=== PATIENT | female | born 1995 | race Caucasian/White ===

== ENCOUNTER 2023-10-29 19:20 | Emergency (ER) | payer SELFPAY ==
[2023-10-29] MEDS ORDERED: SODIUM CHLORIDE 0.9% 500 ML INFUS.BAG IV ONE ×2 (20:01→20:02)
[2023-10-29] MEDS ORDERED: ACETAMINOPHEN 1000 MG/100 ML BAG IVPB ONE (20:01)
[2023-10-29] MEDS ORDERED: guaiFENesin 200 MG/10 ML 10 ML UNIT-DOSE CUPS PO ONE (20:02)
[2023-10-29 20:36] VITALS: BP 131/68; PULSE 102; RESP 22; BMI 26.2
[2023-10-29 20:48] LABS: BASO % 0.4 % (0-2.0); HEMATOCRIT 37.7 % (32.4-45.2); HEMOGLOBIN 12.8 GM/dL (10.7-15.3); LYMPH % 9.5 % (8-40); MEAN PLT VOLUME 9.5 fl (7.5-11.1); MONO % 12.1 % (3.8-10.2); PLATELET COUNT 217 10^3/uL (134-434); RBC 4.28 M/mm3 (3.60-5.2); RDW 13.2 % (11.6-15.6); WHITE BLOOD COUNT 9.1 K/mm3 (4.0-10.0)
[2023-10-29 21:07] LABS: POTASSIUM 3.8 mmol/L (3.5-5.1)
[2023-10-29 21:09] LABS: ALBUMIN 3.8 g/dl (3.4-5.0); BLOOD UREA NITROGEN 7.5 mg/dL (7-18); CALCIUM 8.5 mg/dL (8.5-10.1)
[2023-10-29 21:12] LABS: CREATININE 0.7 mg/dL (0.55-1.3)
[2023-10-29 21:14] LABS: BILIRUBIN,TOTAL 0.2 mg/dL (0.2-1); TOT PROT 7.6 g/dl (6.4-8.2)
[2023-10-29 21:42] VITALS: TEMP 101.1
[2023-10-29 22:09] LABS: THROAT:GRP A STREP NOT DETECTED (NOTDETECTED)
[2023-10-29] MEDS ORDERED: ONDANSETRON 4 MG/2 ML VIAL IVPUSH ONE (22:17)
[2023-10-29] MEDS ORDERED: OSELTAMIVIR PHOSPHATE 45 MG CAPSULE PO ONE (22:18)
[2023-10-29] MEDS ORDERED: OSELTAMIVIR PHOSPHATE 75 MG CAPSULE PO ONE (22:19)
[2023-10-29] MEDS ORDERED: OSELTAMIVIR PHOSPHATE 75 MG CAPSULE ONE (22:22)
[2023-10-29] MEDS ORDERED: ONDANSETRON 4 MG/2 ML VIAL ONE (22:23)
[2023-10-29 22:31] LABS: PH,URINE 6.5 (5.0-8.0); URINE APPEARANCE CLEAR; URINE BILIRUBIN NEGATIVE (NEGATIVE); URINE COLOR YELLOW; URINE GLUCOSE (UA) NEGATIVE (NEGATIVE); URINE KETONE NEGATIVE (NEGATIVE); URINE LEUK ESTERASE NEGATIVE (NEGATIVE); URINE NITRITE NEGATIVE (NEGATIVE); URINE PROTEIN NEGATIVE (NEGATIVE)
== END 2023-10-29 23:59 | disposition home or self-care (01) ==
LOC: JER 19:20
PROC: 3E033NZ Introduction of Analgesics, Hypnotics, Sedatives into Peripheral Vein, Percutaneous Approach (ICD-10-PCS; principal; 2023-10-29)
PROC: 3E033GC Introduction of Other Therapeutic Substance into Peripheral Vein, Percutaneous Approach (ICD-10-PCS; 2023-10-29)
DX: R50.9 Fever, unspecified (principal); R05.9 Cough, unspecified; J02.9 Acute pharyngitis, unspecified; R09.81 Nasal congestion; R09.89 Other specified symptoms and signs involving the circulatory and respiratory systems; R00.0 Tachycardia, unspecified; R09.3 Abnormal sputum; M79.10 Myalgia, unspecified site; J10.1 Influenza due to other identified influenza virus with other respiratory manifestations; Z20.822 Contact with and (suspected) exposure to COVID-19
CPT/HCPCS: 0241U-QW; 36415; 71046-TC-FY; 80053; 81003; 83605; 83690; 84703; 85025; 87070; 87086; 87651; 99284-25